=== PATIENT | female | born 1980 | race Caucasian/White ===

== ENCOUNTER 2021-12-04 15:07 | Emergency (ER) | payer SELFPAY ==
[~2021-12-04] VITALS: Ht 157.5 cm; Wt 56.7 kg
[2021-12-04 15:10] VITALS: BP 164/83
--- NOTE | 2021-12-04 16:26 | NUR ---
EPHRAIM YUEN ATTEMPTED TO CALL PT BACK, NO ANSWER IN LOBBY/OUTSIDE
--- NOTE | 2021-12-04 16:40 | NUR ---
2ND ATTEMPT TO BRING PT BACK, NO ANSWER IN LOBBY/OUTSIDE. PATIENT LEFT WITHOUT BEING SEEN BY DR. SALAZAR/EPHRAIM YUEN. NO FURTHER CARE PROVIDED FOR PATIENT.
--- NOTE | 2021-12-04 16:40 | NUR ---
Note thaone in EDM - 12/04/21 at 1642 by [email or web address] 2ND ATTEMPT TO BRING PT BACK, NO ANSWER IN LOBBY/OUTSIDE. PATIENT ELOPED FROM FACILITY. DISCHARGE INSTRUCTIONS NOT GIVEN TO PATIENT. DR. SALAZAR/EPHRAIM QUIROGATO NOTIFIED.
== END 2021-12-04 16:40 | disposition left against medical advice (07) ==
LOC: MED 15:07
DX: M79.604 Pain in right leg (principal); M79.605 Pain in left leg; M79.601 Pain in right arm; M79.602 Pain in left arm; Z53.21 Procedure and treatment not carried out due to patient leaving prior to being seen by health care provider